=== PATIENT | female | born 2005 | race Hispanic/Latino ===

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

== ENCOUNTER 2024-04-04 22:17 | Emergency (ER) | payer OTHER, SELFPAY | END 2024-04-05 00:40 | disposition home or self-care (01) | LOC: CSHERS 22:17 | DX: J10.1 Influenza due to other identified influenza virus with other respiratory manifestations (principal) | CPT/HCPCS: 87428; 99284 ==